=== PATIENT | male | born 1990 | race American Indian/Alaskan Native ===

== ENCOUNTER 2016-10-24 18:46 | Emergency (ER) | payer MEDICAID, OTHER ==
[2016-10-24] MEDS ORDERED: Ibuprofen 600 MG Tab PO ONE (19:48)
--- NOTE | 2016-10-24 19:57 | EDM.PDOC ---
ED HPI GENERAL MEDICAL PROBLEM - General Chief Complaint: Upper Extremity Injury/Pain Stated Complaint: PAIN UNDER LEFT ARM Time Seen by Provider: 10/24/16 19:26 Source of Information: Reports: Patient History Limitations: Reports: No Limitations - History of Present Illness Duration: Day(s): (last Saturday) Left Arm Pain Score (Numeric/FACES): 3 - Related Data Allergies Allergy/AdvReac Type Severity Reaction Status Date / Time strawberry Allergy Rash Verified 10/24/16 18:58 Home Meds: Home Meds Calcitriol [Rocaltrol] 2 tab PO BID 05/24/16 [History] Levothyroxine 1 tab PO DAILY 05/24/16 [History] Calcium Carbonate [Tums] 500 mg PO Q6H 10/24/16 [History] Cholecalciferol (Vitamin D3) [Vitamin D3] 3,000 unit PO DAILY 10/24/16 [History] Past Medical History - Past Health History Medical/Surgical History: Denies Medical/Surgical History Cardiovascular History: Reports: Hypertension Musculoskeletal History: Reports: Fracture Other Musculoskeletal History: broken nose, knuckle Endocrine/Metabolic History: Reports: Hyperthyroidism, Other (See Below) Other Endocrine/Metabolic History: thyroid removed - Past Surgical History Endocrine Surgical History: Reports: Thyroidectomy Social & Family History - Family History Family Medical History: Noncontributory - Tobacco Use Smoking Status *Q: Never Smoker Years of Tobacco use: 7 Packs/Tins Daily: 0.5 Second Hand Smoke Exposure: No - Caffeine Use Caffeine Use: Reports: None - Alcohol Use Days Per Week of Alcohol Use: 0 - Recreational Drug Use Recreational Drug Use: No Drug Use in Last 12 Months: Yes Recreational Drug Type: Reports: Marijuana/Hashish Recreational Drug Use Frequency: Daily - Living Situation & Occupation Living situation: Reports: Single, with Family Review of Systems - Review of Systems Review Of Systems: See Below Constitutional: Reports: No Symptoms Eyes: Reports: No Symptoms Ears: Reports: No Symptoms Nose: Reports: No Symptoms Mouth/Throat: Reports: No Symptoms Respiratory: Reports: Shortness of Breath, Other (pain upper left lateral chest with deep breath) Cardiovascular: Reports: No Symptoms Musculoskeletal: Reports: Other (intermittent tingling of axillary area when pressure to arms, no impairment of movment) Skin: Reports: No Symptoms Trauma Exam - Physical Exam Exam: See Below Exam Limited By: No Limitations General Appearance: Reports: Alert, No Apparent Distress Head: Reports: Atraumatic, Normocephalic Eyes: Bilateral Eye: EOMI Ears: Reports: Normal External Exam Nose: Reports: Normal Inspection Throat/Mouth: Reports: Normal Inspection Neck: Reports: Non-Tender, Full Range of Motion Respiratory Exam: Reports: No Respiratory Distress, Lungs Clear, Normal Breath Sounds, Rib Tenderness, Left (upper leteral with palpation minimal with movment) Cardiovascular: Reports: Normal Peripheral Pulses, Regular Rate, Rhythm GI/Abdominal: Reports: Normal Bowel Sounds, Soft Back: Reports: Full Range of Motion. 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 Denies: Ecchymosis - Frederick Coma Score Best Eye Response (Frederick): (4) Open Spontaneously Best Verbal Response (Frederick): (5) Oriented Best Motor Response (Erinn): (6) Obeys Commands Course - Vital Signs Last Recorded V/S: Last Vital Signs Temp 97.1 F 10/24/16 18:53 Pulse 68 10/24/16 20:30 Resp 14 10/24/16 20:30 BP 146/103 H 10/24/16 20:34 Pulse Ox 100 10/24/16 20:30 - Orders/Labs/Meds Orders: Active Orders 24 hr Category Date Time Status Ribs 2V w Chest Lt [CR] Urgent Exams 10/24/16 19:29 Taken Meds: Medications Discontinued Medications Generic Name Dose Route Start Last Admin Trade Name Lionel PRN Reason Stop Dose Admin Ibuprofen 600 mg 10/24/16 19:48 10/24/16 19:55 Motrin PO 10/24/16 19:49 600 mg ONETIME ONE Administration - Radiology Interpretation Free Text/Narrative:: fx left 7th rib Departure - Departure Time of Disposition: 20:30 Disposition: Home, Self-Care 01 Condition: good Clinical Impression: Rib pain on left side - Discharge Information Instructions: Rib Fracture, [id number] Forms: ED Department Discharge Additional Instructions: ibuprofen 600mg alternating with tylenol every 4-6 hours. Take ibuprofen with food to avoid stomach upset Deep breathing exercises Follow up Saturday regarding elevated BP Monitor BP , low salt diet - My Orders Last 24 Hours: My Active Orders 10/24/16 19:29 Ribs 2V w Chest Lt [CR] Urgent - Assessment/Plan Last 24 Hours: My Active Orders 10/24/16 19:29 Ribs 2V w Chest Lt [CR] Urgent
[2016-10-24 20:35] VITALS: BP 146/103
== END 2016-10-24 21:04 | disposition home or self-care (01) ==
LOC: DL.ED 18:46
DX: R07.81 Pleurodynia (principal); I10 Essential (primary) hypertension; E05.90 Thyrotoxicosis, unspecified without thyrotoxic crisis or storm; Z79.899 Other long term (current) drug therapy; Z91.02 Food additives allergy status
CPT/HCPCS: 71101; 99283; A9270

== ENCOUNTER 2016-12-12 15:54 | Emergency (ER) | payer MEDICAID, OTHER ==
[2016-12-12] MEDS ORDERED: Sodium Chloride 0.9% 10 ML Syringe FLUSH PRN (16:19)
[2016-12-12] MEDS ORDERED: Iopamidol 755 Mg/ML 100 ML Bottle IVPUSH ONE (16:42)
[2016-12-12 16:50] LABS: CHLORIDE,CL 101 mmol/L (98-109); SODIUM,NA 141 mmol/L (138-146)
--- NOTE | 2016-12-12 17:08 | CT ---
Conclusions: 26-year-old hypertensive 208 pound male with chest pain and abnormal EKG pattern. Scan technique: Volume acquisition of data from the thorax obtained during intravenous administratio n 73 cc nonionic Isovue 370 contrast (5 cc per second via injector) obtained while the patient was l see supine on the Siemens multi slice CT scanner [place], [place]. A ll data archived in the PACS system for storage, reformatting and study. Interpretation: 1. Prominent cardiac silhouette without cephalization of vascular flow, signs of alveolar edema or d ependent effusion. 2. No pericardial effusion. Normal caliber thoracic aorta i.e. no aneurysm or dissection. 3. No intraluminal filling defect or thrombus identified in the pulmonary artery circulation. No per ipheral pleural-based wedge shaped infiltrates or infarcts and no pleural effusions. 4. No parenchymal lung nodule or mass lesion. No hilar/mediastinal lymphadenopathy, focal lobar pneumonia or atelectasis/collapse. 5. No pneumothorax. 6. Gallbladder, liver, stomach, spleen, adrenal glands and pancreas unremarkable. CONCLUSION: Borderline cardiomegaly without signs of heart failure. Significance? Otherwise negative exam.
--- NOTE | 2016-12-12 18:20 | EDM.PDOC ---
Scribed by Aide Pérez 12/12/16 1811 for Cristhian Brewster MD ED HPI GENERAL MEDICAL PROBLEM - General Chief Complaint: Chest Pain Stated Complaint: PAIN IN CHEST LEFT SIDE Time Seen by Provider: 12/12/16 16:22 Source of Information: Reports: Patient, RN, RN Notes Reviewed History Limitations: Reports: No Limitations - History of Present Illness INITIAL COMMENTS - FREE TEXT/NARRATIVE: Complaining of recurrent sharp, squeezing chest pain at lower midline chest at lower midline chest pain that radiates up the midline chest and occasionally to left pectoral region. Denies nausea, vomiting, SOB, cough, fever or chills. Quality: Reports: Ache Severity: Moderate Improves with: Reports: None Worsens with: Reports: None Associated Symptoms: Reports: No Other Symptoms - Related Data Allergies Allergy/AdvReac Type Severity Reaction Status Date / Time strawberry Allergy Rash Verified 10/24/16 18:58 Home Meds: Home Meds Calcitriol [Rocaltrol] 2 tab PO BID 05/24/16 [History] Levothyroxine 150 tab PO DAILY 05/24/16 [History] Calcium Carbonate [Tums] 500 mg PO Q6H 10/24/16 [History] Cholecalciferol (Vitamin D3) [Vitamin D3] 3,000 unit PO DAILY 10/24/16 [History] Lisinopril [Prinivil] 2.5 mg PO DAILY 12/12/16 [History] Past Medical History - Past Health History Medical/Surgical History: Denies Medical/Surgical History Cardiovascular History: Reports: Hypertension Gastrointestinal History: Reports: Other (See Below) (esophageal spasm) Musculoskeletal History: Reports: Fracture Other Musculoskeletal History: broken nose, knuckle Endocrine/Metabolic History: Reports: Hyperthyroidism, Other (See Below) Other Endocrine/Metabolic History: thyroid removed - Past Surgical History Endocrine Surgical History: Reports: Thyroidectomy Social & Family History - Family History Family Medical History: Noncontributory - Tobacco Use Smoking Status *Q: Never Smoker Years of Tobacco use: 7 Packs/Tins Daily: 0.5 Second Hand Smoke Exposure: No - Caffeine Use Caffeine Use: Reports: None - Alcohol Use Days Per Week of Alcohol Use: 0 - Recreational Drug Use Recreational Drug Use: No Drug Use in Last 12 Months: Yes Recreational Drug Type: Reports: Marijuana/Hashish Recreational Drug Use Frequency: Daily - Living Situation & Occupation Living situation: Reports: Single, with Family ED ROS GENERAL - Review of Systems Review Of Systems: ROS reveals no pertinent complaints other than HPI. ED EXAM, GENERAL - Physical Exam Exam: See Below Exam Limited By: No Limitations General Appearance: Obese Eye Exam: Bilateral Eye: Normal Inspection Ears: Normal External Exam, Normal Canal, Hearing Grossly Normal, Normal TMs Nose: Normal Inspection, Normal Mucosa, No Blood Throat/Mouth: Normal Inspection, Normal Lips, Normal Teeth, Normal Gums, Normal Oropharynx, Normal Voice, No Airway Compromise Head: Atraumatic, Normocephalic Neck: Normal Inspection, Supple, Non-Tender, Full Range of Motion Cardiovascular: Normal Peripheral Pulses, Regular Rate, Rhythm, No Edema, No Gallop, No JVD, No Murmur, No Rub GI/Abdominal: Normal Bowel Sounds, Soft, Non-Tender, No Organomegaly, No Distention, No Abnormal Bruit, No Mass (Male) Exam: Deferred Rectal (Males) Exam: Deferred Back Exam: Normal Inspection, Full Range of Motion, NT Extremities: Normal Inspection, Normal Range of Motion, Non-Tender, Normal Capillary Refill, No Pedal Edema Neurological: Alert, Oriented, CN II-XII Intact, Normal Cognition, Normal Gait, Normal Reflexes, No Motor/Sensory Deficits Psychiatric: Anxious Skin Exam: Warm, Dry, Intact, Normal Color, No Rash EKG INTERPRETATION EKG Date: 12/12/16 Time: 16:04 Rhythm: Other (sinus rhythm) Rate (Beats/Min): 65 Parsons: Normal P-Wave: Present QRS: RBBB (incomplete. S1, Q3, T3.) ST-T: Other (Early ST elevation, probable normal early repoliarzation pattern.) QT: Normal Comparison: NA - No Prior EKG Course - Vital Signs Last Recorded V/S: Last Vital Signs Temp 37.0 C 12/12/16 16:12 Pulse 63 12/12/16 16:12 Resp 16 12/12/16 16:12 BP 140/103 H 12/12/16 16:12 Pulse Ox 97 12/12/16 16:12 - Orders/Labs/Meds Orders: Active Orders 24 hr Category Date Time Status EKG 12 Lead [EKG Documentation Completion] [RC] STAT Care 12/12/16 16:18 Active Peripheral IV Care [RC] . DIRECTED Care 12/12/16 16:19 Active AMYLASE [CHEM] Stat Lab 12/12/16 16:25 Results COMPREHENSIVE METABOLIC PN,CMP [CHEM] Stat Lab 12/12/16 16:25 Results LIPASE [CHEM] Stat Lab 12/12/16 16:25 Results TROPONIN I [CHEM] Stat Lab 12/12/16 16:25 Results Sodium Chloride 0.9% [Saline Flush] Med 12/12/16 16:19 Active 10 ml FLUSH ASDIRECTED PRN Peripheral IV Insertion Adult [OM.PC] Stat Oth 12/12/16 16:18 Ordered Medication Orders Sodium Chloride (Saline Flush) 10 ml FLUSH ASDIRECTED PRN PRN Reason: Keep Vein Open Last Admin: 12/12/16 16:46 Dose: 10 ml Labs: Laboratory Tests 12/12/16 12/12/16 12/12/16 Range/Units 16:25 16:25 16:25 WBC 9.2 (5.0-10.0) 10^3/uL RBC 5.08 (4.6-6.2) 10^6/uL Hgb 14.1 (14.0-18.0) g/dL Hct 42.0 (40.0-54.0) % MCV 82.7 (80-100) fL MCH 27.8 (27.0-34.0) pg MCHC 33.6 (33.0-35.0) g/dL Plt Count 181 (150-450) 10^3/uL Neut % (Auto) 68.3 (42.2-75.2) % Lymph % (Auto) 20.7 (20.5-50.1) % Valley % (Auto) 5.9 (2-8) % Eos % (Auto) 4.3 H (1.0-3.0) % Baso % (Auto) 0.8 (0.0-1.0) % PT 9.4 (9.0-12.0) SEC INR 0.9 (0.9-1.2) APTT 25.9 (22.0-34.0) SEC D-Dimer, Quantitative < 100 (0-400) ng/mL Sodium 141 (138-146) mmol/L Potassium 4.1 (3.5-4.9) mmol/L Chloride 101 (98-109) mmol/L Carbon Dioxide 30 H (24-29) mmol/L Anion Gap 14.1 BUN 12 (8-26) mg/dL Creatinine 0.9 (0.6-1.3) mg/dL Est Cr Clr Drug Dosing 136.52 mL/min Estimated GFR (MDRD) > 60 BUN/Creatinine Ratio 13.33 Glucose 95 (70-105) mg/dL Calcium 1.05 Troponin I 0.02 (0.00-0.02) ng/ml TSH, Ultra Sensitive (0.35-7.0) uIu/mL Urine Color (YELLOW) Urine Appearance (CLEAR) Urine pH (5.0-9.0) Ur Specific Hulbert (1.005-1.030) Urine Protein (NEGATIVE) Urine Glucose (UA) (NEGATIVE) Urine Ketones (NEGATIVE) Urine Occult Blood (NEGATIVE) Urine Nitrite (NEGATIVE) Urine Bilirubin (NEGATIVE) Urine Urobilinogen (0.2-1.0) mg/dL Ur Leukocyte Esterase (NEGATIVE) Urine RBC /HPF Urine WBC (0-5/HPF) /HPF Ur Epithelial Cells /HPF Urine Bacteria (0-FEW/HPF) /HPF Urine Opiates Screen (NEGATIVE) Ur Oxycodone Screen (NEGATIVE) Urine Methadone Screen (NEGATIVE) Ur Barbiturates Screen (NEGATIVE) U Tricyclic Antidepress (NEGATIVE) Ur Phencyclidine Scrn (NEGATIVE) Ur Amphetamine Screen (NEGATIVE) U Methamphetamines Scrn (NEGATIVE) Urine MDMA Screen (NEGATIVE) U Benzodiazepines Scrn (NEGATIVE) Urine Cocaine Screen (NEGATIVE) U Marijuana (THC) Screen (NEGATIVE) 12/12/16 12/12/16 12/12/16 Range/Units 16:25 16:36 16:36 WBC (5.0-10.0) 10^3/uL RBC (4.6-6.2) 10^6/uL Hgb (14.0-18.0) g/dL Hct (40.0-54.0) % MCV (80-100) fL MCH (27.0-34.0) pg MCHC (33.0-35.0) g/dL Plt Count (150-450) 10^3/uL Neut % (Auto) (42.2-75.2) % Lymph % (Auto) (20.5-50.1) % Valley % (Auto) (2-8) % Eos % (Auto) (1.0-3.0) % Baso % (Auto) (0.0-1.0) % PT (9.0-12.0) SEC INR (0.9-1.2) APTT (22.0-34.0) SEC D-Dimer, Quantitative (0-400) ng/mL Sodium (138-146) mmol/L Potassium (3.5-4.9) mmol/L Chloride (98-109) mmol/L Carbon Dioxide (24-29) mmol/L Anion Gap BUN (8-26) mg/dL Creatinine (0.6-1.3) mg/dL Est Cr Clr Drug Dosing mL/min Estimated GFR (MDRD) BUN/Creatinine Ratio Glucose (70-105) mg/dL Calcium Troponin I (0.00-0.02) ng/ml TSH, Ultra Sensitive 3.12 (0.35-7.0) uIu/mL Urine Color Yellow (YELLOW) Urine Appearance Clear (CLEAR) Urine pH 7.0 (5.0-9.0) Ur Specific Hulbert 1.010 (1.005-1.030) Urine Protein Negative (NEGATIVE) Urine Glucose (UA) Negative (NEGATIVE) Urine Ketones Negative (NEGATIVE) Urine Occult Blood Negative (NEGATIVE) Urine Nitrite Negative (NEGATIVE) Urine Bilirubin Negative (NEGATIVE) Urine Urobilinogen 0.2 (0.2-1.0) mg/dL Ur Leukocyte Esterase Negative (NEGATIVE) Urine RBC 0-5 /HPF Urine WBC Not seen (0-5/HPF) /HPF Ur Epithelial Cells Few /HPF Urine Bacteria Rare (0-FEW/HPF) /HPF Urine Opiates Screen Negative (NEGATIVE) Ur Oxycodone Screen Negative (NEGATIVE) Urine Methadone Screen Negative (NEGATIVE) Ur Barbiturates Screen Negative (NEGATIVE) U Tricyclic Antidepress Negative (NEGATIVE) Ur Phencyclidine Scrn Negative (NEGATIVE) Ur Amphetamine Screen Negative (NEGATIVE) U Methamphetamines Scrn Negative (NEGATIVE) Urine MDMA Screen Negative (NEGATIVE) U Benzodiazepines Scrn Negative (NEGATIVE) Urine Cocaine Screen Negative (NEGATIVE) U Marijuana (THC) Screen Negative (NEGATIVE) Meds: Medications Generic Name Dose Route Start Last Admin Trade Name Freq PRN Reason Stop Dose Admin Sodium Chloride 10 ml 12/12/16 16:19 12/12/16 16:46 Saline Flush FLUSH 10 ml ASDIRECTED PRN Administration Keep Vein Open Discontinued Medications Generic Name Dose Route Start Last Admin Trade Name Lionel PRN Reason Stop Dose Admin Iopamidol 100 ml 12/12/16 16:42 12/12/16 16:44 Isovue-370 (76%) IVPUSH 12/12/16 16:43 73 ml ONETIME ONE Administration - Radiology Interpretation Free Text/Narrative:: CT Chest: Per rad report shows borderline cardiomegaly without signs of heart failure. Significant? otherwise negative exam. Departure - Departure Time of Disposition: 18:04 Disposition: Home, Self-Care 01 Condition: Good Clinical Impression: Atypical chest pain, Esophageal spasm - Discharge Information Instructions: Nonspecific Chest Pain, Esophageal Spasm Referrals: Laureen Naik NP [Primary Care Provider] - Forms: ED Department Discharge Additional Instructions: RX: Omeprazole 20mg. Follow up in clinic in 5-7 days. Return to ER if worse at any time. - My Orders Last 24 Hours: My Active Orders 12/12/16 16:18 EKG 12 Lead [EKG Documentation Completion] [RC] STAT Peripheral IV Insertion Adult [OM.PC] Stat 12/12/16 16:19 Peripheral IV Care [RC] . DIRECTED Sodium Chloride 0.9% [Saline Flush] 10 ml FLUSH ASDIRECTED PRN 12/12/16 16:25 AMYLASE [CHEM] Stat COMPREHENSIVE METABOLIC PN,CMP [CHEM] Stat LIPASE [CHEM] Stat TROPONIN I [CHEM] Stat - Assessment/Plan Last 24 Hours: My Active Orders 12/12/16 16:18 EKG 12 Lead [EKG Documentation Completion] [RC] STAT Peripheral IV Insertion Adult [OM.PC] Stat 12/12/16 16:19 Peripheral IV Care [RC] . DIRECTED Sodium Chloride 0.9% [Saline Flush] 10 ml FLUSH ASDIRECTED PRN 12/12/16 16:25 AMYLASE [CHEM] Stat COMPREHENSIVE METABOLIC PN,CMP [CHEM] Stat LIPASE [CHEM] Stat TROPONIN I [CHEM] Stat I have read and agree with the documentation that has been completed regarding this visit. By signing this record, I attest that the documentation was completed in my physical presence and is an accurate record of the encounter.
[2016-12-12 18:23] VITALS: BP 122/84
--- NOTE | 2017-01-06 12:53 | EKG ---
12/12/2016 - NAVDEEP STINSON - EKG from 12/12/2016, per my reading, shows sinus rhythm with nonspecific ST changes. MOD /[id number]
== END 2016-12-12 18:15 | disposition home or self-care (01) ==
LOC: DL.ED 15:54
DX: R07.89 Other chest pain (principal); K22.4 Dyskinesia of esophagus; I45.10 Unspecified right bundle-branch block; E05.90 Thyrotoxicosis, unspecified without thyrotoxic crisis or storm; E89.0 Postprocedural hypothyroidism; F17.200 Nicotine dependence, unspecified, uncomplicated; F12.20 Cannabis dependence, uncomplicated
CPT/HCPCS: 36415; 71260; 80053; 80305; 81001; 82150; 83690; 84443; 84484; 85025; 85379; 85610; 85730; 93005; 99285; J7050; Q9967

== ENCOUNTER 2017-01-30 18:51 | Emergency (ER) | payer MEDICAID, OTHER ==
[2017-01-30 19:02] VITALS: BP 144/114
[2017-01-30 19:35] LABS: CHLORIDE,CL 101 mmol/L (101-111); SODIUM,NA 141 mmol/L (135-145)
--- NOTE | 2017-01-30 20:19 | EDM.PDOC ---
ED HPI GENERAL MEDICAL PROBLEM - General Chief Complaint: Chest Pain Stated Complaint: DIAGNOSED WITH GRAVES DISEASE/BREATHING PROBLEMS Time Seen by Provider: 01/30/17 19:08 Source of Information: Reports: Patient History Limitations: Reports: No Limitations - History of Present Illness INITIAL COMMENTS - FREE TEXT/NARRATIVE: c/o mid sternal chest pain starting around 4 pm, sharp, was sweaty, felt like heart beating fast at onset. Pain intermittent lasting only few minutes and goes away. Increased pain with deep breathing. Denies GI or cardiac hx. No hx of anxiety. No nausea. Hx thyroidectomy in May. Recent increase of levothyroxine on Saturday. Onset: Today Mid-Sternal Chest Pain Score (Numeric/FACES): 7 - Related Data Allergies Allergy/AdvReac Type Severity Reaction Status Date / Time strawberry Allergy Rash Verified 01/30/17 18:58 Home Meds: Home Meds Calcitriol [Rocaltrol] 2 tab PO BID 05/24/16 [History] Levothyroxine 200 mcg PO DAILY 05/24/16 [History] Calcium Carbonate [Tums] 500 mg PO Q6H 10/24/16 [History] Cholecalciferol (Vitamin D3) [Vitamin D3] 3,000 unit PO DAILY 10/24/16 [History] Lisinopril [Prinivil] 20 mg PO DAILY 12/12/16 [History] Past Medical History - Past Health History Medical/Surgical History: Denies Medical/Surgical History Cardiovascular History: Reports: Hypertension Gastrointestinal History: Reports: GERD Musculoskeletal History: Reports: Fracture Other Musculoskeletal History: broken nose, knuckle Endocrine/Metabolic History: Reports: Hyperthyroidism, Other (See Below) Other Endocrine/Metabolic History: thyroid removed - Past Surgical History Endocrine Surgical History: Reports: Thyroidectomy Social & Family History - Family History Family Medical History: Noncontributory - Tobacco Use Smoking Status *Q: Never Smoker Years of Tobacco use: 7 Packs/Tins Daily: 0.5 Second Hand Smoke Exposure: No - Caffeine Use Caffeine Use: Reports: None - Alcohol Use Days Per Week of Alcohol Use: 0 - Recreational Drug Use Recreational Drug Use: No Drug Use in Last 12 Months: Yes Recreational Drug Type: Reports: Marijuana/Hashish Recreational Drug Use Frequency: Daily - Living Situation & Occupation Living situation: Reports: Single, with Family ED ROS GENERAL - Review of Systems Review Of Systems: ROS reveals no pertinent complaints other than HPI. ED EXAM, GENERAL - Physical Exam Exam: See Below Exam Limited By: No Limitations General Appearance: Alert, Anxious Eye Exam: Bilateral Eye: EOMI Ears: Normal External Exam Nose: Normal Inspection Throat/Mouth: Normal Inspection Head: Atraumatic, Normocephalic Neck: Normal Inspection, Supple. No: Lymphadenopathy (L), Lymphadenopathy (R) Respiratory/Chest: No Respiratory Distress, Lungs Clear, Normal Breath Sounds Cardiovascular: Normal Peripheral Pulses, Regular Rate, Rhythm, No Edema GI/Abdominal: Normal Bowel Sounds, Soft, Non-Tender Extremities: Normal Inspection, Normal Range of Motion Neurological: Alert, Oriented, Normal Cognition, Normal Gait Psychiatric: Normal Affect, Anxious Skin Exam: Warm, Dry, Intact, Normal Color Course - Vital Signs Last Recorded V/S: Last Vital Signs Temp 96.1 F 01/30/17 19:01 Pulse 74 01/30/17 19:01 Resp 19 01/30/17 19:01 BP 144/114 H 01/30/17 19:01 Pulse Ox 100 01/30/17 19:01 - Orders/Labs/Meds Orders: Active Orders 24 hr Category Date Time Status EKG 12 Lead [EKG Documentation Completion] [RC] URGENT Care 01/30/17 19:14 Active Labs: Laboratory Tests 01/30/17 01/30/17 01/30/17 Range/Units 19:05 19:05 19:05 WBC 11.8 H (5.0-10.0) 10^3/uL RBC 4.83 (4.6-6.2) 10^6/uL Hgb 13.8 L (14.0-18.0) g/dL Hct 40.7 (40.0-54.0) % MCV 84.3 (80-100) fL MCH 28.6 (27.0-34.0) pg MCHC 33.9 (33.0-35.0) g/dL Plt Count 158 (150-450) 10^3/uL Neut % (Auto) 70.4 (42.2-75.2) % Lymph % (Auto) 17.7 L (20.5-50.1) % [place] % (Auto) 6.4 (2-8) % Eos % (Auto) 5.2 H (1.0-3.0) % Baso % (Auto) 0.3 (0.0-1.0) % D-Dimer, Quantitative < 100 (0-400) ng/mL Sodium 141 (135-145) mmol/L Potassium 3.8 (3.6-5.0) mmol/L Chloride 101 (101-111) mmol/L Carbon Dioxide 28.0 (21.0-31.0) mmol/L Anion Gap 15.8 BUN 15 (7-18) mg/dL Creatinine 1.0 (0.6-1.3) mg/dL Est Cr Clr Drug Dosing 121.79 mL/min Estimated GFR (MDRD) > 60 BUN/Creatinine Ratio 15.00 Glucose 94 (74-105) mg/dL Calcium 9.0 (8.4-10.2) mg/dl Magnesium 1.7 L (1.8-2.5) mg/dL Total Bilirubin 0.7 (0.2-1.0) mg/dL AST 20 (10-42) IU/L ALT 20 (10-60) IU/L Alkaline Phosphatase 95 (42-121) IU/L CK-MB (CK-2) (0.4-4.7) ng/mL Troponin I 0.02 (0.00-0.02) ng/ml Total Protein 8.3 H (6.7-8.2) g/dl Albumin 4.5 (3.2-5.5) g/dl Globulin 3.8 Albumin/Globulin Ratio 1.18 Amylase 90 (28-100) U/L Lipase 24 (22-51) U/L TSH, Ultra Sensitive (0.35-7.0) uIu/mL Urine Color (YELLOW) Urine Appearance (CLEAR) Urine pH (5.0-9.0) Ur Specific [place] (1.005-1.030) Urine Protein (NEGATIVE) Urine Glucose (UA) (NEGATIVE) Urine Ketones (NEGATIVE) Urine Occult Blood (NEGATIVE) Urine Nitrite (NEGATIVE) Urine Bilirubin (NEGATIVE) Urine Urobilinogen (0.2-1.0) mg/dL Ur Leukocyte Esterase (NEGATIVE) Urine RBC /HPF Urine WBC (0-5/HPF) /HPF Urine Bacteria (0-FEW/HPF) /HPF Urine Mucus /LPF Urine Opiates Screen (NEGATIVE) Ur Oxycodone Screen (NEGATIVE) Urine Methadone Screen (NEGATIVE) Ur Barbiturates Screen (NEGATIVE) U Tricyclic Antidepress (NEGATIVE) Ur Phencyclidine Scrn (NEGATIVE) Ur Amphetamine Screen (NEGATIVE) U Methamphetamines Scrn (NEGATIVE) Urine MDMA Screen (NEGATIVE) U Benzodiazepines Scrn (NEGATIVE) Urine Cocaine Screen (NEGATIVE) U Marijuana (THC) Screen (NEGATIVE) 01/30/17 01/30/17 01/30/17 Range/Units 19:05 19:25 19:25 WBC (5.0-10.0) 10^3/uL RBC (4.6-6.2) 10^6/uL Hgb (14.0-18.0) g/dL Hct (40.0-54.0) % MCV (80-100) fL MCH (27.0-34.0) pg MCHC (33.0-35.0) g/dL Plt Count (150-450) 10^3/uL Neut % (Auto) (42.2-75.2) % Lymph % (Auto) (20.5-50.1) % [place] % (Auto) (2-8) % Eos % (Auto) (1.0-3.0) % Baso % (Auto) (0.0-1.0) % D-Dimer, Quantitative (0-400) ng/mL Sodium (135-145) mmol/L Potassium (3.6-5.0) mmol/L Chloride (101-111) mmol/L Carbon Dioxide (21.0-31.0) mmol/L Anion Gap BUN (7-18) mg/dL Creatinine (0.6-1.3) mg/dL Est Cr Clr Drug Dosing mL/min Estimated GFR (MDRD) BUN/Creatinine Ratio Glucose (74-105) mg/dL Calcium (8.4-10.2) mg/dl Magnesium (1.8-2.5) mg/dL Total Bilirubin (0.2-1.0) mg/dL AST (10-42) IU/L ALT (10-60) IU/L Alkaline Phosphatase (42-121) IU/L CK-MB (CK-2) 2.40 (0.4-4.7) ng/mL Troponin I (0.00-0.02) ng/ml Total Protein (6.7-8.2) g/dl Albumin (3.2-5.5) g/dl Globulin Albumin/Globulin Ratio Amylase (28-100) U/L Lipase (22-51) U/L TSH, Ultra Sensitive 4.98 (0.35-7.0) uIu/mL Urine Color Light yellow (YELLOW) Urine Appearance Clear (CLEAR) Urine pH 7.0 (5.0-9.0) Ur Specific [place] 1.010 (1.005-1.030) Urine Protein Negative (NEGATIVE) Urine Glucose (UA) Negative (NEGATIVE) Urine Ketones Negative (NEGATIVE) Urine Occult Blood Negative (NEGATIVE) Urine Nitrite Negative (NEGATIVE) Urine Bilirubin Negative (NEGATIVE) Urine Urobilinogen 0.2 (0.2-1.0) mg/dL Ur Leukocyte Esterase Negative (NEGATIVE) Urine RBC 0-5 /HPF Urine WBC 0-5 (0-5/HPF) /HPF Urine Bacteria Not seen (0-FEW/HPF) /HPF Urine Mucus Rare /LPF Urine Opiates Screen Negative (NEGATIVE) Ur Oxycodone Screen Negative (NEGATIVE) Urine Methadone Screen Negative (NEGATIVE) Ur Barbiturates Screen Negative (NEGATIVE) U Tricyclic Antidepress Negative (NEGATIVE) Ur Phencyclidine Scrn Negative (NEGATIVE) Ur Amphetamine Screen Negative (NEGATIVE) U Methamphetamines Scrn Negative (NEGATIVE) Urine MDMA Screen Negative (NEGATIVE) U Benzodiazepines Scrn Negative (NEGATIVE) Urine Cocaine Screen Negative (NEGATIVE) U Marijuana (THC) Screen Negative (NEGATIVE) Departure - Departure Time of Disposition: 21:15 Disposition: Home, Self-Care 01 Condition: Good Clinical Impression: Non-cardiac chest pain Instructions: Nonspecific Chest Pain, [id number] Referrals: PCP,Not In Area [Primary Care Provider] - Forms: ED Department Discharge Additional Instructions: light low fat low acid diet light activity for 24 hours recheck in clinic later this week, sooner if symptoms associated with breathing difficulty, nausea or dizziness - My Orders Last 24 Hours: My Active Orders 01/30/17 19:14 EKG 12 Lead [EKG Documentation Completion] [RC] URGENT - Assessment/Plan Last 24 Hours: My Active Orders 01/30/17 19:14 EKG 12 Lead [EKG Documentation Completion] [RC] URGENT
--- NOTE | 2017-03-11 05:41 | EKG ---
01/30/2017 - NAVDEEP STINSON - This 12-lead EKG shows a normal sinus rhythm with a ventricular rate of 68. There is an incomplete right bundle-branch block. No acute ST-T wave changes. [facility] /[id number]
== END 2017-01-30 21:28 | disposition home or self-care (01) ==
LOC: DL.ED 18:51
DX: R07.89 Other chest pain (principal); I10 Essential (primary) hypertension; E05.90 Thyrotoxicosis, unspecified without thyrotoxic crisis or storm; K21.9 Gastro-esophageal reflux disease without esophagitis; Z79.899 Other long term (current) drug therapy; Z98.890 Other specified postprocedural states
CPT/HCPCS: 36415; 71010; 80053; 80305; 81001; 82150; 82553; 83690; 83735; 84443; 84484; 85025; 85379; 93005; 99285

== ENCOUNTER 2017-05-01 18:56 | Emergency (ER) | payer MEDICAID, OTHER ==
[2017-05-01] MEDS ORDERED: Sodium Chloride 0.9% 1,000 ML IV ONE (19:07)
[2017-05-01 19:56] LABS: CHLORIDE,CL 99 mmol/L (101-111); SODIUM,NA 137 mmol/L (135-145)
[2017-05-01 20:38] VITALS: BP 140/86
--- NOTE | 2017-05-01 20:41 | EDM.PDOC ---
ED HPI GENERAL MEDICAL PROBLEM - General Chief Complaint: General Stated Complaint: SEIZURE. 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 Jony denies complaint other than fatique which he states he was up til 230 -then up with kids at 630. - Related Data Allergies Allergy/AdvReac Type Severity Reaction Status Date / Time strawberry Allergy Rash Verified 05/01/17 19:04 Home Meds: Home Meds Calcitriol [Rocaltrol] 2 tab PO BID 05/24/16 [History] Levothyroxine 200 mcg PO DAILY 05/24/16 [History] Calcium Carbonate [Tums] 500 mg PO Q6H 10/24/16 [History] Cholecalciferol (Vitamin D3) [Vitamin D3] 3,000 unit PO DAILY 10/24/16 [History] Lisinopril [Prinivil] 20 mg PO DAILY 12/12/16 [History] Past Medical History - Past Health History Medical/Surgical History: Denies Medical/Surgical History Cardiovascular History: Reports: Hypertension Gastrointestinal History: Reports: GERD Musculoskeletal History: Reports: Fracture Other Musculoskeletal History: broken nose, knuckle Endocrine/Metabolic History: Reports: Hyperthyroidism, Other (See Below) Other Endocrine/Metabolic History: thyroid removed - Past Surgical History Endocrine Surgical History: Reports: Thyroidectomy Social & Family History - Family History Family Medical History: Noncontributory - Tobacco Use Smoking Status *Q: Current Every Day Smoker Years of Tobacco use: 15 Packs/Tins Daily: 0.5 Second Hand Smoke Exposure: No - Caffeine Use Caffeine Use: Reports: None - Alcohol Use Days Per Week of Alcohol Use: 2 Number of Drinks Per Day: 4 Total Drinks Per Week: 8 - Recreational Drug Use Recreational Drug Use: No Drug Use in Last 12 Months: Yes Recreational Drug Type: Reports: Marijuana/Hashish Recreational Drug Use Frequency: Daily - Living Situation & Occupation Living situation: Reports: Single, with Family ED ROS GENERAL - Review of Systems Review Of Systems: ROS reveals no pertinent complaints other than HPI. ED EXAM, GENERAL - Physical Exam Exam: See Below Exam Limited By: No Limitations General Appearance: Alert, No Apparent Distress Eye Exam: Bilateral Eye: EOMI, PERRL Ears: Normal External Exam, Normal TMs Nose: Normal Inspection Throat/Mouth: Normal Inspection, Normal Lips, Normal Oropharynx Head: Atraumatic, Normocephalic Neck: Normal Inspection Respiratory/Chest: No Respiratory Distress, Lungs Clear, Normal Breath Sounds Cardiovascular: Normal Peripheral Pulses, Regular Rate, Rhythm GI/Abdominal: Normal Bowel Sounds, Soft, Non-Tender Extremities: Normal Inspection Neurological: Alert, Oriented, Normal Cognition Psychiatric: Normal Affect Skin Exam: Warm, Dry, Intact, Normal Color Course - Vital Signs Last Recorded V/S: Last Vital Signs Temp 97.9 F 05/01/17 19:08 Pulse 127 H 05/01/17 19:08 Resp 14 05/01/17 19:08 BP 138/101 H 05/01/17 19:08 Pulse Ox 95 05/01/17 19:08 - Orders/Labs/Meds Labs: Laboratory Tests 05/01/17 05/01/17 05/01/17 Range/Units 19:01 19:01 19:25 WBC 15.2 H (5.0-10.0) 10^3/uL RBC 4.78 (4.6-6.2) 10^6/uL Hgb 13.5 L (14.0-18.0) g/dL Hct 40.9 (40.0-54.0) % MCV 85.6 (80-100) fL MCH 28.2 (27.0-34.0) pg MCHC 33.0 (33.0-35.0) g/dL Plt Count 187 (150-450) 10^3/uL Neut % (Auto) 77.8 H (42.2-75.2) % Lymph % (Auto) 12.4 L (20.5-50.1) % [place] % (Auto) 5.2 (2-8) % Eos % (Auto) 4.1 H (1.0-3.0) % Baso % (Auto) 0.5 (0.0-1.0) % Sodium (135-145) mmol/L Potassium (3.6-5.0) mmol/L Chloride (101-111) mmol/L Carbon Dioxide (21.0-31.0) mmol/L Anion Gap BUN (7-18) mg/dL Creatinine (0.6-1.3) mg/dL Est Cr Clr Drug Dosing mL/min Estimated GFR (MDRD) BUN/Creatinine Ratio Glucose (74-105) mg/dL Calcium (8.4-10.2) mg/dl Total Bilirubin (0.2-1.0) mg/dL AST (10-42) IU/L ALT (10-60) IU/L Alkaline Phosphatase (42-121) IU/L Total Protein (6.7-8.2) g/dl Albumin (3.2-5.5) g/dl Globulin Albumin/Globulin Ratio Amylase (28-100) U/L Lipase (22-51) U/L Urine Color Yellow (YELLOW) Urine Appearance Clear (CLEAR) Urine pH 5.5 (5.0-9.0) Ur Specific [place] 1.010 (1.005-1.030) Urine Protein Trace H (NEGATIVE) Urine Glucose (UA) Negative (NEGATIVE) Urine Ketones Negative (NEGATIVE) Urine Occult Blood Trace-lysed H (NEGATIVE) Urine Nitrite Negative (NEGATIVE) Urine Bilirubin Negative (NEGATIVE) Urine Urobilinogen 0.2 (0.2-1.0) mg/dL Ur Leukocyte Esterase Negative (NEGATIVE) Urine RBC 0-5 /HPF Urine WBC 0-5 (0-5/HPF) /HPF Ur Epithelial Cells Few /HPF Urine Bacteria Moderate H (0-FEW/HPF) /HPF Urinalysis Comment Urine Opiates Screen Negative (NEGATIVE) Ur Oxycodone Screen Negative (NEGATIVE) Urine Methadone Screen Negative (NEGATIVE) Ur Barbiturates Screen Negative (NEGATIVE) U Tricyclic Antidepress Negative (NEGATIVE) Ur Phencyclidine Scrn Negative (NEGATIVE) Ur Amphetamine Screen Negative (NEGATIVE) U Methamphetamines Scrn Negative (NEGATIVE) Urine MDMA Screen Negative (NEGATIVE) U Benzodiazepines Scrn Negative (NEGATIVE) Urine Cocaine Screen Negative (NEGATIVE) U Marijuana (THC) Screen Negative (NEGATIVE) 05/01/17 Range/Units 19:25 WBC (5.0-10.0) 10^3/uL RBC (4.6-6.2) 10^6/uL Hgb (14.0-18.0) g/dL Hct (40.0-54.0) % MCV (80-100) fL MCH (27.0-34.0) pg MCHC (33.0-35.0) g/dL Plt Count (150-450) 10^3/uL Neut % (Auto) (42.2-75.2) % Lymph % (Auto) (20.5-50.1) % [place] % (Auto) (2-8) % Eos % (Auto) (1.0-3.0) % Baso % (Auto) (0.0-1.0) % Sodium 137 (135-145) mmol/L Potassium 3.4 L (3.6-5.0) mmol/L Chloride 99 L (101-111) mmol/L Carbon Dioxide 24.0 (21.0-31.0) mmol/L Anion Gap 17.4 BUN 11 (7-18) mg/dL Creatinine 1.0 (0.6-1.3) mg/dL Est Cr Clr Drug Dosing 121.79 mL/min Estimated GFR (MDRD) > 60 BUN/Creatinine Ratio 11.00 Glucose 84 (74-105) mg/dL Calcium 6.6 L D (8.4-10.2) mg/dl Total Bilirubin 0.6 (0.2-1.0) mg/dL AST 39 (10-42) IU/L ALT 27 (10-60) IU/L Alkaline Phosphatase 86 (42-121) IU/L Total Protein 8.1 (6.7-8.2) g/dl Albumin 4.5 (3.2-5.5) g/dl Globulin 3.6 Albumin/Globulin Ratio 1.25 Amylase 82 (28-100) U/L Lipase 20 L (22-51) U/L Urine Color (YELLOW) Urine Appearance (CLEAR) Urine pH (5.0-9.0) Ur Specific [place] (1.005-1.030) Urine Protein (NEGATIVE) Urine Glucose (UA) (NEGATIVE) Urine Ketones (NEGATIVE) Urine Occult Blood (NEGATIVE) Urine Nitrite (NEGATIVE) Urine Bilirubin (NEGATIVE) Urine Urobilinogen (0.2-1.0) mg/dL Ur Leukocyte Esterase (NEGATIVE) Urine RBC /HPF Urine WBC (0-5/HPF) /HPF Ur Epithelial Cells /HPF Urine Bacteria (0-FEW/HPF) /HPF Urinalysis Comment Urine Opiates Screen (NEGATIVE) Ur Oxycodone Screen (NEGATIVE) Urine Methadone Screen (NEGATIVE) Ur Barbiturates Screen (NEGATIVE) U Tricyclic Antidepress (NEGATIVE) Ur Phencyclidine Scrn (NEGATIVE) Ur Amphetamine Screen (NEGATIVE) U Methamphetamines Scrn (NEGATIVE) Urine MDMA Screen (NEGATIVE) U Benzodiazepines Scrn (NEGATIVE) Urine Cocaine Screen (NEGATIVE) U Marijuana (THC) Screen (NEGATIVE) Meds: Medications Discontinued Medications Generic Name Dose Route Start Last Admin Trade Name Freq PRN Reason Stop Dose Admin Sodium Chloride 1,000 mls @ 999 mls/hr 05/01/17 19:07 05/01/17 19:17 Normal Saline IV 05/01/17 20:07 999 mls/hr .BOLUS ONE Administration Departure - Departure Time of Disposition: 20:36 Disposition: Home, Self-Care 01 Condition: Good Clinical Impression: Malaise and fatigue - Discharge Information Instructions: Fatigue Additional Instructions: establish routine sleep pattern, increase fluid intake multivitamin daily follow up as needed
== END 2017-05-01 20:48 | disposition home or self-care (01) ==
LOC: DL.ED 18:56
DX: R53.81 Other malaise (principal); R53.83 Other fatigue; F17.210 Nicotine dependence, cigarettes, uncomplicated; I10 Essential (primary) hypertension; E89.0 Postprocedural hypothyroidism; Z79.899 Other long term (current) drug therapy; Z91.018 Allergy to other foods
CPT/HCPCS: 36415; 80053; 80305; 81001; 82150; 83690; 85025; 96360; 99284; J7030; 99283

== ENCOUNTER 2022-07-25 15:24 | Emergency (ER) | payer MEDICAID ==
[2022-07-25 15:35] VITALS: BP 121/79; PULSE 122
[2022-07-25] MEDS: Sodium Chloride 0.9% 1,000 ML IV ONE (16:27)
[2022-07-25 16:39] LABS: ANION GAP 16.3 mEq/L (7-13)
[2022-07-25] MEDS ORDERED: Iopamidol 612 MG/ML 100 ML Bottle IVPUSH ONE (17:00)
[2022-07-25 17:03] LABS: PTT,PARTIAL THROMBOPLSTIN TIME 28.9 SEC (22.0-34.0)
[2022-07-25] MEDS: Iopamidol 612 MG/ML 100 ML Bottle IVPUSH ONE (17:14)
[2022-07-25] MEDS: Potassium Chloride 10 MEQ Tab.ER PO ONE (17:46)
[2022-07-25] MEDS: Sodium Chloride 0.9% 10 ML Syringe FLUSH PRN (17:48)
[2022-07-25 17:58] LABS: AMPHETAMINES,URINE NEGATIVE (NEGATIVE); BARBITURATES,URINE NEGATIVE (NEGATIVE); BENZODIAZEPINE,URINE NEGATIVE (NEGATIVE); MDMA (ECSTASY), URINE NEGATIVE (NEGATIVE); METHADONE,URINE NEGATIVE (NEGATIVE); METHAMPHETAMINES,URINE NEGATIVE (NEGATIVE); OPIATES,URINE NEGATIVE (NEGATIVE); OXYCODONE,URINE NEGATIVE (NEGATIVE); PHENCYCLIDINE,URINE NEGATIVE (NEGATIVE); TCA,URINE NEGATIVE (NEGATIVE)
== END 2022-07-25 18:19 | disposition home or self-care (01) ==
LOC: DL.ED 15:24
DX: J18.9 Pneumonia, unspecified organism (principal); I10 Essential (primary) hypertension; K21.9 Gastro-esophageal reflux disease without esophagitis; E03.9 Hypothyroidism, unspecified; Z91.018 Allergy to other foods; Z79.899 Other long term (current) drug therapy
CPT/HCPCS: 36415; 71045; 74177; 80053; 80305-QW; 81003; 82150; 83605; 83690; 83735; 84145; 84484; 85025; 85610; 85730; 86140; 87040; 87081; 87430; 93005; 93010; 96360; 99284; 99284-25; A9270-GY; J3490; J7030; Q9967

== ENCOUNTER 2025-05-02 22:35 | Emergency (ER) | payer MEDICAID ==
[2025-05-02] MEDS: GI Cocktail Oral Solution 30 ML PO ONE (22:56)
== END 2025-05-02 23:39 | disposition home or self-care (01) ==
LOC: DL.ED 22:35
DX: K21.9 Gastro-esophageal reflux disease without esophagitis (principal); I10 Essential (primary) hypertension; E03.9 Hypothyroidism, unspecified; Z91.018 Allergy to other foods; Z79.899 Other long term (current) drug therapy; Z79.890 Hormone replacement therapy
CPT/HCPCS: 99283; A9270-GY